=== PATIENT | female | born 1975 | race Caucasian/White ===

== ENCOUNTER 2018-12-13 18:40 | Emergency (ER) | payer BC ==
[~2018-12-13] VITALS: Ht 157.5 cm; Wt 93.0 kg
[~2018-12-13 18:40] MED LIST: HYDROCHLOROTHIA25 M1 PO
[2018-12-13] MEDS ORDERED: PRINZIDE 20-251 EACH PO (19:09)
[2018-12-13 19:47] LABS: ABSOLUTE BASOPHILS 0.1 thou/uL (0.0-0.2); ABSOLUTE EOSINOPHILS 0.1 thou/uL (0.0-0.7); ABSOLUTE LYMPHOCYTES 1.3 thou/uL (0.8-5.3); ABSOLUTE MONOCYTES 0.8 thou/uL (0.0-1.2); ABSOLUTE NEUTROPHILS 9.8 thou/uL (1.6-8.1); BASOPHILS 0.5 %; EOSINOPHILS 0.5 %; HEMATOCRIT 40.8 % (37.0-47.0); LYMPHOCYTES 11.1 %; MCH 29.5 pg (26.0-34.0); MCHC 34.3 g/dL (28.0-37.0); MCV 85.8 fL (80.0-100.0); MONOCYTES 6.4 %; MPV 8.5 fl. (7.2-11.1); NUCLEATED RBCS 0 /100WBC; PLATELET COUNT* 289 thou/uL (150-400); POLYS 81.5 %; RBC 4.76 mil/uL (4.20-5.00); RDW-CV 12.4 % (10.5-14.5)
[2018-12-13 19:51] LABS: CALCIUM 8.4 mg/dL (8.5-10.1); CREATININE 0.9 mg/dL (0.6-1.3)
[2018-12-13 19:55] LABS: ALBUMIN 3.4 g/dL (3.4-5.0); TOTAL BILIRUBIN 0.3 mg/dL (<0.1-1.0); TOTAL PROTEIN 7.4 g/dL (6.4-8.2)
[2018-12-13 21:59] VITALS: BP 127/81
== END 2018-12-13 22:00 | disposition home or self-care (01) ==
LOC: M.ERS 18:40
PROVIDERS: Nurse Practitioner Family
DX: N92.0 Excessive and frequent menstruation with regular cycle (principal); I10 Essential (primary) hypertension

== ENCOUNTER 2019-04-24 22:29 | Emergency (ER) | payer BC ==
[~2019-04-24] VITALS: Ht 157.4 cm; Wt 90.7 kg
[~2019-04-24 22:29] MED LIST changes: +PRINZIDE 20-251 EACH PO
[2019-04-24] MEDS ORDERED: WELLBUTRIN XL150 MG PO (22:42)
[2019-04-24] MEDS ORDERED: TRAMADOL 50 MG50 MG PO (22:42)
[2019-04-25] MEDS ORDERED: FLEXERIL PO (00:07)
[2019-04-25] MEDS ORDERED: NORCO 7.5-3251 EACH PO (00:07)
[2019-04-25 00:24] VITALS: BP 115/73
== END 2019-04-25 00:15 | disposition home or self-care (01) ==
LOC: M.ERS 22:29
DX: M54.16 Radiculopathy, lumbar region (principal); I10 Essential (primary) hypertension; F32.9 Major depressive disorder, single episode, unspecified; Z90.49 Acquired absence of other specified parts of digestive tract